=== PATIENT | female | born 1945 | race Two or more races ===

== ENCOUNTER → 2017-02-07 | Outpatient (CLI) | payer MEDICAID, OTHER ==
[~2017-02-07] MED LIST: AMBIEN PO; HYDR12.53 PO; RANITIDINE PO
--- NOTE | 2017-02-07 15:29 | RADRPT ---
PROCEDURE: XR Pelvis and Hips. CLINICAL INDICATION: Pelvic pain. Bilateral hip pain. TECHNIQUE: Five views. Frontal pelvis. Frontal and lateral right hip. Frontal and lateral left hip. COMPARISON: No prior studies are available for comparison. FINDINGS: There is no fracture or dislocation. The soft tissues are normal. Articular surfaces are intact. Small osteophytes are arising from both the joint margins. There are also degenerative changes of the lower lumbar spine. There is no lytic or blastic lesion. There is no radiopaque foreign body. IMPRESSION: 1. Mild degenerative changes of both hips. 2. Degenerative changes of the lower lumbar spine. 3. Otherwise unremarkable x-ray pelvis and bilateral hips. RPTAT: QQ .Dante Rincon MD, MD Date Time Electronically viewed and signed by .Dante Rincon MD, on 02/07/2017 15:29 .R/
--- NOTE | 2017-02-07 22:54 | HKNOTE ---
DATE OF SERVICE: 02/07/2017 CHIEF COMPLAINT: Bilateral hip pain. HISTORY OF PRESENT ILLNESS: This is a 72-year-old female complaining of pain in her bilateral hips and back. The pain radiates down to her knees. She has not had any previous treatment. She denies any history of trauma. She does not use any assistive devices. She denies any numbness or weaknes s. She does not take any pain medications. She is able to perform her activities of daily living. She has no other complaints. GAIT: Nonantalgic gait. No use of assist devices. PHYSICAL EXAMINATION: RIGHT HIP: 0 to 120 degrees of flexion, 20 degrees of internal rotation, 50 degrees of external rot ation. No obligate external rotation. Positive straight leg raise. Positive Christiano's. No tenderne ss at the greater trochanter. LEFT HIP: 0 to 120 degrees of flexion, 20 degrees of internal rotation, 50 degrees of external rota tion. No obligate external rotation. Positive straight leg raise. Positive Christiano's. No tendernes s at the greater trochanter. Motor strength 5/5 hamstrings, quadriceps, tibialis anterior, gastrocsoleus bilaterally. X-RAYS: RIGHT HIP: Three views of the right hip demonstrate minimal degenerative changes. There are no fra ctures or dislocations. There were degenerative changes at the SI joint. LEFT HIP: Three views of the left hip demonstrate minimal degenerative changes. There are no fract ures or dislocations. There were degenerative changes at the SI joint. ASSESSMENT: A 72-year-old female with bilateral hip pain, back pain. PLAN: We will request authorization for physical therapy for core strengthening. She can take ibup rofen for pain control. She will follow up with me as needed. Dictated By: MELINDA PLATT/NTS Conf#: [id number] DID#: [id number]
== END | disposition home or self-care (01) ==
LOC: HKI 10:07
PROVIDERS: ATTEND Orthopaedic Surgery Adult Reconstructive Orthopaedic Surgery
DX: M25.552 Pain in left hip (principal); M25.551 Pain in right hip; M54.9 Dorsalgia, unspecified
CPT/HCPCS: 73523; Z7500; G0463

== ENCOUNTER 2019-01-16 06:50 | Day surgery (SDC) | payer OTHER ==
[2019-01-12 14:39] VITALS: BMI 22.9
[2019-01-16] VITALS (17 sets, daily range): BP systolic 96–142; BP diastolic 53–73; PULSE 74–88; RESP 10–17; Ht 147.3 cm; Wt 61.2 kg
[~2019-01-16] VITALS: Ht 147.3 cm; Wt 61.2 kg
[2019-01-16] MEDS ORDERED: CEFAZOLIN 2 GM/50 ML (PMX) 50 ML IVPB ONE (07:00)
[2019-01-16] MEDS ORDERED: LACTATED RINGER'S 1,000 ML IV SCH (08:00)
[2019-01-16] MEDS ORDERED: POLYMYXIN/BACITRACIN 1L IRRIG ONE (08:51)
[2019-01-16] MEDS ORDERED: BUPIVACAINE 0.5% (SDV) 30 ML INJ ONE (08:51)
[2019-01-16] MEDS ORDERED: PROPOFOL 100 ML ONE (08:53)
[2019-01-16] MEDS ORDERED: LIDOCAINE 2% (SDV) 5 ML INJ ONE (08:53)
[2019-01-16] MEDS ORDERED: FENTAnyl 50 MCG/ML VIAL ONE (08:53)
[2019-01-16] MEDS ORDERED: CEFAZOLIN 1 GM INJ ONE (09:22)
[2019-01-16] MEDS ORDERED: LABETALOL HCL 20MG INJ IV PRN (10:30)
[2019-01-16] MEDS ORDERED: EPHEDrine 25 MG/5 ML SYG IV PRN (10:30)
[2019-01-16] MEDS ORDERED: hydrALAzine 20 MG INJ IV PRN (10:30)
[2019-01-16] MEDS ORDERED: ONDANSETRON 4 MG INJ IV PRN (10:30)
[2019-01-16] MEDS ORDERED: ALBUTEROL 0.083% (NEB) 2.5 MG/3 ML AMP HHN PRN (10:30)
[2019-01-16] MEDS ORDERED: HYDROmorphONE 1 MG/5 ML IV SYRINGE IV PRN ×3 (10:30)
[2019-01-16] MEDS ORDERED: KETOROLAC 30 MG INJ IV PRN (10:30)
[2019-01-16] MEDS ORDERED: DIPHENHYDRAMINE 50 MG INJ IV PRN (10:30)
[2019-01-16] MEDS ORDERED: OXYCODONE/ACETAMINOPHEN (5/325) TAB PO PRN ×2 (10:30)
[2019-01-16] MEDS ORDERED: FENTAnyl 50 MCG/ML VIAL IV PRN ×3 (10:30)
[2019-01-16] MEDS ORDERED: MEPERIDINE 25 MG INJ IV PRN (10:30)
== END 2019-01-16 12:29 | disposition home or self-care (01) ==
LOC: SDS 06:50
PROVIDERS: ATTEND Podiatrist Foot & Ankle Surgery
DX: M21.612 Bunion of left foot (principal); I10 Essential (primary) hypertension
CPT/HCPCS: 28296; 73630; 88302; 88304; 88311; J0690; J1170; J3010